=== PATIENT | female | born 1965 | race Caucasian/White ===

== ENCOUNTER → 2017-12-15 | Outpatient (CLI) | payer OTHER ==
[~2017-12-15] MED LIST: CIPROFLOXACIN500 MG PO; FLAGYL500 MG PO; LINZESS145 MC1 PO; NEURONTIN300 MG PO; NORTRIPTYLINE H10 M1 PO
== END | disposition home or self-care (01) ==
LOC: RAD 11:14
DX: M19.041 Primary osteoarthritis, right hand (principal)

== ENCOUNTER 2020-04-29 15:02 | Emergency (ER) | payer OTHER ==
[~2020-04-29] VITALS: Ht 152.4 cm; Wt 89.8 kg
[2020-04-29 15:05] VITALS: BP 166/75
[2020-04-29] MEDS ORDERED: SILVADENE20 GM TD (15:26)
== END 2020-04-29 16:21 | disposition home or self-care (01) ==
LOC: ED 15:02
DX: T25.032A Burn of unspecified degree of left toe(s) (nail), initial encounter (principal); T25.031A Burn of unspecified degree of right toe(s) (nail), initial encounter; T25.012A Burn of unspecified degree of left ankle, initial encounter; Z91.013 Allergy to seafood; Z91.018 Allergy to other foods; X08.8XXA Exposure to other specified smoke, fire and flames, initial encounter; Y93.89 Activity, other specified; Y92.89 Other specified places as the place of occurrence of the external cause; Y99.8 Other external cause status

== ENCOUNTER → 2020-06-25 | Outpatient (CLI) | payer OTHER ==
[~2020-06-25] MED LIST changes: +CYMBALTA30 MG PO; +LEVOXYL112 MCG PO; +SILVADENE20 GM TD
[2020-06-26 07:06] LABS: RHEUMATOID ARTHRITIS FACTOR <10.0 IU/mL (0.0-13.9)
[2020-06-27 00:10] LABS: CCP ANTIBODIES IGG/IGA 7 units (0-19)
== END | disposition home or self-care (01) ==
LOC: LAB 10:55
PROVIDERS: Family Medicine; ATTEND Family Medicine
DX: M25.60 Stiffness of unspecified joint, not elsewhere classified (principal)

== ENCOUNTER → 2020-06-30 | Outpatient (CLI) | payer OTHER | END | disposition home or self-care (01) | LOC: MAMMO 09:34 | PROVIDERS: ATTEND Family Medicine | DX: Z12.31 Encounter for screening mammogram for malignant neoplasm of breast (principal) ==

== ENCOUNTER 2020-07-04 17:00 | Emergency (ER) | payer OTHER ==
[~2020-07-04 17:00] MED LIST changes: -CYMBALTA30 MG PO; -LEVOXYL112 MCG PO
[2020-07-04 17:35] LABS: BASO # 0.1 10*3/uL (0.0-0.1); BASO % 0.7 % (0.0-1.0); EOS # 0.2 10*3/uL (0.0-0.4); EOS % 2.2 % (1.0-4.0); HEMATOCRIT 42.2 % (37.0-47.0); LYMPH % 22.8 % (27.0-41.0); MEAN CELL VOLUME 90.9 fl (81.0-99.0); MEAN CORPUSCULAR HGB 29.5 pg (27.0-31.0); MEAN CORPUSCULAR HGB CONC 32.5 g/dl (33.0-37.0); MEAN PLATELET VOLUME 10.1 fl (9.6-12.3); MONO # 0.7 10*3/uL (0.1-1.0); MONO % 8.4 % (3.0-9.0); NEUT # 5.8 10*3/uL (2.3-7.9); NEUT % 65.6 % (47.0-73.0); PLATELET COUNT AUTOMATED 327 10*3/uL (130-400); RED BLOOD COUNT 4.64 10*6/uL (4.10-5.10); RED CELL DISTRI WIDTH 13.1 % (0-14.5); WHITE BLOOD COUNT 8.8 10*3/uL (4.8-10.8)
[2020-07-04] MEDS ORDERED: LEVOXYL112 MCG PO (17:48)
[2020-07-04] MEDS ORDERED: CYMBALTA30 MG PO (17:48)
[2020-07-04 17:51] LABS: ALBUMIN 3.5 gm/dl (3.1-4.5); ALKALINE PHOSPHATASE 81 U/L (45-117); BUN 21 mg/dl (7-24); CHLORIDE 110 mmol/L (98-107); POTASSIUM 3.9 mmol/L (3.5-5.1); SGOT/AST 10 IU/L (3-35); SGPT/ALT 19 U/L (12-78); SODIUM 143 mmol/L (136-145); TOTAL PROTEIN 7.6 gm/dL (6.4-8.2)
[2020-07-04 17:52] LABS: TROPONIN I < 0.015 ng/ml (<0.045)
[2020-07-04 17:54] LABS: ACT PARTIAL THROMBO TIME 26.2 SECONDS (20.0-32.1)
[2020-07-04 18:47] VITALS: BP 141/70
== END 2020-07-04 20:51 | disposition home or self-care (01) ==
LOC: ED 17:00
PROVIDERS: Nurse Practitioner Family
DX: R07.89 Other chest pain (principal); R06.02 Shortness of breath; Z91.018 Allergy to other foods; Z91.013 Allergy to seafood; Z79.899 Other long term (current) drug therapy; Z98.51 Tubal ligation status; Z87.891 Personal history of nicotine dependence

== ENCOUNTER → 2022-03-30 | Outpatient (CLI) | payer OTHER ==
[~2022-03-30] MED LIST changes: +CYMBALTA30 MG PO; +LEVOXYL112 MCG PO
== END | disposition home or self-care (01) ==
LOC: MAMMO 15:20
PROVIDERS: ATTEND Family Medicine
DX: Z12.31 Encounter for screening mammogram for malignant neoplasm of breast (principal)

== ENCOUNTER → 2023-02-21 | Outpatient (CLI) | payer OTHER | END | disposition home or self-care (01) | LOC: CARD 15:07 | PROVIDERS: ATTEND Student in an Organized Health Care Education/Training Program | DX: Z01.810 Encounter for preprocedural cardiovascular examination (principal) ==